=== PATIENT | male | born 1995 | race Caucasian/White ===

== ENCOUNTER 2017-09-14 07:49 | Emergency (ER) | payer OTHER ==
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
--- NOTE | 2017-09-14 14:10 | CT ---
EXAM DATE: 09/14/17 PATIENT'S AGE: 22 Patient: LANEY RIGGINS Facility: [place], [place] Site . Site : 1995 Study: CT Head [id number] 8:45:27 AM Ordering Physician: Amy Boo Final Report: INDICATION: Head injury. TECHNIQUE: CT head without contrast. COMPARISON: None. FINDINGS: CSF spaces: Within normal limits for age. Brain parenchyma: The gifford-white differentiation is normal. No sign of mass, hemorrhage, or midline shift. Skull base and calvarium: The visualized paranasal sinuses and mastoid air cells demonstrate no acute or significant findings. The visualized orbits are grossly unremarkable. No skull fractures. IMPRESSION: Unremarkable noncontrast head CT. Please note that all CT scans at this facility use dose modulation, iterative reconstruction, and/or weight-based dosing when appropriate to reduce radiation dose to as low as reasonably achievable. Dictated by Prasanth Moore MD @ Sep 14 2017 8:50AM (Electronic Signature) Report Signed by Proxy. MTDD
== END 2017-09-14 09:15 | disposition home or self-care (01) ==
LOC: MW.ED 07:49
DX: S01.01XA Laceration without foreign body of scalp, initial encounter (principal); W22.8XXA Striking against or struck by other objects, initial encounter
CPT/HCPCS: 70450; 70450-26; 99283-25